=== PATIENT | male | born 1930 | race Caucasian/White ===

== ENCOUNTER 2018-11-21 17:08 | Emergency (ER) | payer MEDICARE, OTHER ==
[~2018-11-21] VITALS: Ht 180.3 cm; Wt 90.7 kg
--- OUTSIDE RECORDS SUMMARY | 2018-11-21 17:13 | XMS REPORT | Continuity of Care Document ---
Author Organization Unknown Address Unknown Allergies There is no data. Medications There is no data. Problems There is no data. Procedures There is no data. Results Test Result Range LIPID PANEL - 08/30/18 08:32 CHOLESTEROL, TOTAL 124 mg/dL <200 HDL CHOLESTEROL 48 mg/dL >40 TRIGLYCERIDES 141 mg/dL <150 LDL-CHOLESTEROL 54 mg/dL (calc) NRG CHOL/HDLC RATIO 2.6 (calc) <5.0 NON HDL CHOLESTEROL 76 mg/dL (calc) <130 CMP - 08/30/18 08:32 GLUCOSE 146 mg/dL 65-99 UREA NITROGEN (BUN) 19 mg/dL 7-25 CREATININE 1.10 mg/dL 0.70-1.11 eGFR NON-AFR. AUSTRALIAN 60 mL/min/1.73m2 > OR=60 eGFR 69 mL/min/1.73m2 > OR=60 BUN/CREATININE RATIO NOT APPLICABLE (calc) 6-22 SODIUM 139 mmol/L 135-146 POTASSIUM 4.4 mmol/L 3.5-5.3 CHLORIDE 102 mmol/L 98-110 CARBON DIOXIDE 29 mmol/L 20-32 CALCIUM 9.9 mg/dL 8.6-10.3 PROTEIN, TOTAL 6.9 g/dL 6.1-8.1 ALBUMIN 4.5 g/dL 3.6-5.1 GLOBULIN 2.4 g/dL (calc) 1.9-3.7 ALBUMIN/GLOBULIN RATIO 1.9 (calc) 1.0-2.5 BILIRUBIN, TOTAL 1.0 mg/dL 0.2-1.2 ALKALINE PHOSPHATASE 53 U/L 40-115 AST 19 U/L 10-35 ALT 13 U/L 9-46 TSH - 08/30/18 08:32 TSH 0.28 mIU/L 0.40-4.50 A1C - 08/30/18 08:32 HEMOGLOBIN A1c 5.4 % of total Hgb <5.7 Encounters ACCT No. Visit Date/Time Discharge Status Pt. Type Provider Facility Loc./Unit Complaint [id number] 11/08/2018 11:40:00 11/08/2018 23:59:59 [facility] Outpatient REESE BOOKER [facility] [id number] 08/30/2018 08:15:00 Document Registration
--- NOTE | 2018-11-21 17:47 | NUR ---
pt here with " number 1 daughter" she is staying in w/r. pt alert gcs 15. pt seen at urgent care [place]. referred here w/o any tx. pt could not ua there.pt says i have a " bladder infection". relates even after taking home dose lasix pt has not urinated since noon today. pt points to bladder area for abd pain rating 10. pt relates no more dyspnea then usua;. no acute sighns of dyspnea noted. lungs cta bilaterally. abd tender to palpation bladder area only. done corrina pt at 1752.
--- NOTE | 2018-11-21 18:19 | NUR ---
pt cant ua yet
--- NOTE | 2018-11-21 18:19 | NUR ---
labs to lab byme
[2018-11-21 18:35] LABS: BASOPHILS % (AUTO) 0 % (0-10); EOSINOPHILS # (AUTO) 0.2 10^3/uL (0.0-0.3); EOSINOPHILS % (AUTO) 1 % (0-10); HEMATOCRIT 41 % (40-54); HEMOGLOBIN 14.2 G/DL (13.3-17.7); LYMPHOCYTES # (AUTO) 1.5 X 10^3 (1.0-4.0); LYMPHOCYTES % (AUTO) 10 % (12-44); MEAN CORPUSCULAR HEMOGLOBIN 31 PG (25-34); MEAN CORPUSCULAR HGB CONC 34 G/DL (32-36); MEAN CORPUSCULAR VOLUME 89 FL (80-99); MEAN PLATELET VOLUME 11.6 FL (7.4-10.4); MONOCYTES # (AUTO) 1.4 X 10^3 (0.0-1.0); MONOCYTES % (AUTO) 10 % (0-12); NEUTROPHILS # (AUTO) 11.5 X 10^3 (1.8-7.8); NEUTROPHILS % (AUTO) 79 % (42-75); PLATELET COUNT 188 10^3/uL (130-400); RED CELL DISTRIBUTION WIDTH 14.6 % (10.0-14.5); WHITE BLOOD COUNT 14.6 10^3/uL (4.3-11.0)
--- NOTE | 2018-11-21 18:44 | ED GU-Female ---
General Chief Complaint: - Urinary Stated Complaint: UTI SYMPTOMS Nursing Triage Note: Pt sent from Urgent Care in [facility] for UTI symptoms. Pt taking Lasix and has not urinated since 1200 and only a scant amount at that time. Nursing Sepsis Screen: No Definite Risk Source: patient Exam Limitations: no limitations History of Present Illness Date Seen by Provider: Nov 21, 2018 Time Seen by Provider: 18:08 Initial Comments This 88-year-old gentleman presents to the emergency room as a referral from the urgent care in [place] for urinary symptoms. He has had decreased urinary output since Thursday. He now has significant pelvic pain related to this. He has been taking an ztum-cnb-lgbnxpl prostate medication for several years but has not been prescribed any prostate medications. He does have a prior history of urinary tract infection. He feels the urge to urinate but cannot. Allergies and Home Medications Allergies Coded Allergies: No Known Drug Allergies (Unverified , 11/21/18) Home Medications Tamsulosin HCl 0.4 Mg Cap, 0.4 MG PO DAILY Prescribed by: SAVITA WOOTEN on 11/21/181945 Patient Home Medication List Home Medication List Reviewed: Yes Review of Systems Review of Systems Constitutional: no symptoms reported EENTM: no symptoms reported Respiratory: no symptoms reported Cardiovascular: no symptoms reported Gastrointestinal: no symptoms reported Genitourinary: see HPI Musculoskeletal: no symptoms reported Skin: no symptoms reported Psychiatric/Neurological: No Symptoms Reported Endocrine: No Symptoms Reported Hematologic/Lymphatic: No Symptoms Reported Past Ghkzuqy-Kjddex-Aoeqtx Hx Past Med/Social Hx: Reviewed and Corrections made Patient Social History Alcohol Use: Denies Use Recreational Drug Use: No Smoking Status: Former Smoker 2nd Hand Smoke Exposure: No Recent Foreign Travel: No Contact w/Someone Who Travel: No Recent Infectious Disease Expo: No Recent Hopitalizations: No Physical Abuse: No Sexual Abuse: No Seasonal Allergies Seasonal Allergies: Yes Past Medical History Surgeries: Yes (By-pass sx.) Angioplasty, Cardiac, Tonsillectomy Respiratory: No Cardiac: Yes Coronary Artery Disease, Heart Attack, High Cholesterol, Hypertension, Irregular Heartbeat Neurological: No Genitourinary: Yes Prostate Problems Gastrointestinal: No Musculoskeletal: Yes Arthritis Diabetes, Non-Insulin dep HEENT: No Loss of Vision: Denies Hearing Impairment: Hard of Hearing Cancer: No Psychosocial: No Integumentary: No Blood Disorders: No Physical Exam Vital Signs Vital Signs - First Documented 11/21/18 17:12 Temp 97.8 Pulse 89 Resp 14 B/P (MAP) 139/79 (99) Pulse Ox 97 O2 Delivery Room Air Capillary Refill : Less Than 3 Seconds Height, Weight, BMI Height: 5'11.00" Weight: 200lbs. oz. 90.691571by; BMI Method:Stated General Appearance: WD/WN, no apparent distress HEENT: PERRL/EOMI, normal ENT inspection Neck: normal inspection Cardiovascular: regular rate, rhythm, no edema, no murmur Respiratory: lungs clear, normal breath sounds, no respiratory distress Gastrointestinal: normal bowel sounds, soft, tenderness (suprapubic), other (bladder distended and palpable just under the umbilicus) Extremities: normal inspection, no pedal edema Neurologic/Psychiatric: combat control II-XII nml as tested, no motor/sensory deficits, alert, normal mood/affect, oriented x 3 Skin: normal color, warm/dry Progress/Results/Core Measures Suspected Sepsis Recent Fever Within 48 Hours: No Infection Criteria Present: Suspected New Infection New/Unexplained Altered Menta: No Sepsis Screen: No Definite Risk SIRS Temperature:97.8 Pulse: 89 Respiratory Rate: 14 Laboratory Tests 11/21/18 18:28: White Blood Count 14.6H Blood Pressure 139 /79 Mean: 99 Laboratory Tests 11/21/18 18:28: Creatinine 1.04, Platelet Count 188, Total Bilirubin 1.1H Results/Orders Lab Results Laboratory Tests Test 11/21/18 18:28 11/21/18 18:58 Range/Units White Blood Count 14.6 H 4.3-11.0 10^3/uL Red Blood Count 4.66 4.35-5.85 10^6/uL Hemoglobin 14.2 13.3-17.7 G/DL Hematocrit 41 40-54 % Mean Corpuscular Volume 89 80-99 FL Mean Corpuscular Hemoglobin 31 25-34 PG Mean Corpuscular Hemoglobin Concent 34 32-36 G/DL Red Cell Distribution Width 14.6 H 10.0-14.5 % Platelet Count 188 130-400 10^3/uL Mean Platelet Volume 11.6 H 7.4-10.4 FL Neutrophils (%) (Auto) 79 H 42-75 % Lymphocytes (%) (Auto) 10 L 12-44 % Monocytes (%) (Auto) 10 0-12 % Eosinophils (%) (Auto) 1 0-10 % Basophils (%) (Auto) 0 0-10 % Neutrophils # (Auto) 11.5 H 1.8-7.8 X 10^3 Lymphocytes # (Auto) 1.5 1.0-4.0 X 10^3 Monocytes # (Auto) 1.4 H 0.0-1.0 X 10^3 Eosinophils # (Auto) 0.2 0.0-0.3 10^3/uL Basophils # (Auto) 0.0 0.0-0.1 10^3/uL Neutrophils % (Manual) 76 % Lymphocytes % (Manual) 15 % Monocytes % (Manual) 5 % Band Neutrophils 1 % Reactive Lymphocytes 3 % Blood Morphology Comment NORMAL Sodium Level 136 135-145 MMOL/L Potassium Level 4.1 3.6-5.0 MMOL/L Chloride Level 98 98-107 MMOL/L Carbon Dioxide Level 23 21-32 MMOL/L Anion Gap 15 H 5-14 MMOL/L Blood Urea Nitrogen 22 H 7-18 MG/DL Creatinine 1.04 0.60-1.30 MG/DL Estimat Glomerular Filtration Rate > 60 BUN/Creatinine Ratio 21 Glucose Level 108 H 70-105 MG/DL Calcium Level 9.8 8.5-10.1 MG/DL Corrected Calcium 9.6 8.5-10.1 MG/DL Magnesium Level 2.0 1.8-2.4 MG/DL Total Bilirubin 1.1 H 0.1-1.0 MG/DL Aspartate Amino Transf (AST/SGOT) 24 5-34 U/L Alanine Aminotransferase (ALT/SGPT) 18 0-55 U/L Alkaline Phosphatase 54 40-136 U/L Total Protein 6.8 6.4-8.2 GM/DL Albumin 4.2 3.2-4.5 GM/DL Urine Color YELLOW Urine Clarity CLEAR Urine pH 7 5-9 Urine Specific Jackson 1.005 L 1.016-1.022 Urine Protein NEGATIVE NEGATIVE Urine Glucose (UA) NEGATIVE NEGATIVE Urine Ketones NEGATIVE NEGATIVE Urine Nitrite NEGATIVE NEGATIVE Urine Bilirubin NEGATIVE NEGATIVE Urine Urobilinogen NORMAL NORMAL MG/DL Urine Leukocyte Esterase NEGATIVE NEGATIVE Urine RBC (Auto) 5+ H NEGATIVE Urine RBC >100 H /HPF Urine WBC NONE /HPF Urine Squamous Epithelial Cells RARE /HPF Urine Crystals NONE /LPF Urine Bacteria TRACE /HPF Urine Casts NONE /LPF Urine Mucus NEGATIVE /LPF Urine Culture Indicated NO My Orders Orders - SAVITA GUTIÉRREZ MD Cbc With Automated Diff (11/21/18 18:09) Comprehensive Metabolic Panel (11/21/18 18:09) Magnesium (11/21/18 18:09) Ua Culture If Indicated (11/21/18 18:09) Ed Iv/Invasive Line Start (11/21/18 18:09) Michel Cath (11/21/18 18:32) Manual Differential (11/21/18 18:28) Tamsulosin Capsule (Flomax Capsule) (11/21/18 19:45) Medications Given in ED Current Medications Medications Dose Ordered Sig/Desiree Route Start Time Stop Time Status Last Admin Dose Admin Tamsulosin HCl 0.4 mg ONCE ONCE PO 11/21/18 19:45 11/21/18 19:46 DC 11/21/18 19:55 0.4 MG Vital Signs/I&O 11/21/18 17:12 Temp 97.8 Pulse 89 Resp 14 B/P (MAP) 139/79 (99) Pulse Ox 97 O2 Delivery Room Air Capillary Refill : Less Than 3 Seconds Blood Pressure Mean: 99 Progress Note #1: Time: 18:42 Progress Note Patient seen and examined. Labs pending. Bladder appears to be distended and palpable just under the umbilicus. We will place a catheter and check urinalysis as well. Progress Note #2: Time: 20:21 Progress Note Michel catheter was placed yielding 800 mL of urine. He did have some terminal hematuria with a clot. This was irrigated by nursing staff to clear the clots. Michel catheter was left in. A dose of Flomax was administered and a prescription was provided. Patient was instructed to follow-up as soon as possible with Dr. Booker or Dr. Woo. Departure Impression Primary Impression: Urinary retention Disposition: 01 HOME, SELF-CARE Condition: Improved Departure-Patient Inst. Referrals: REESE BOOKER MD (PCP/Family) Primary Care Physician FERNANDO WOO MD Patient Instructions: How to Care for Your Michel Catheter, Male, Urinary Obstruction Add. Discharge Instructions: Complete the urinary catheter in place until you follow up with either Dr. Booker or Dr. Woo. Follow-up with either of these physicians or both of them as soon as possible. The meantime start Flomax as prescribed. Drink plenty of clear liquids. Return to the emergency room if you have any problems or concerns. All discharge instructions reviewed with patient and/or family. Voiced understanding. Scripts Tamsulosin HCl (Flomax) 0.4 Mg Cap 0.4 MG PO DAILY, #30 CAP Prov: SAVITA GUTIÉRREZ MD 11/21/18 Copy Copies To 1: REESE BOOKER MD Copies To 2: FERNANDO WOO MD, JOSHUA T MD Nov 21, 2018 18:44
[2018-11-21 18:56] LABS: BAND NEUTROPHILS 1 %; LYMPHOCYTES % (MANUAL) 15 %; MONOCYTES % (MANUAL) 5 %; NEUTROPHILS % (MANUAL) 76 %; RBC MORPH NORMAL; REACTIVE LYMPHOCYTES 3 %
[2018-11-21 18:57] LABS: ALANINE AMINOTRANSFERASE 18 U/L (0-55); ALBUMIN 4.2 GM/DL (3.2-4.5); ALKALINE PHOSPHATASE 54 U/L (40-136); BILIRUBIN,TOTAL 1.1 MG/DL (0.1-1.0); BUN/CREATININE RATIO 21; CALCIUM 9.8 MG/DL (8.5-10.1); CARBON DIOXIDE 23 MMOL/L (21-32); CHLORIDE 98 MMOL/L (98-107); CREATININE SERUM 1.04 MG/DL (0.60-1.30); GFR ESTIMATED > 60; GLUCOSE 108 MG/DL (70-105); POTASSIUM 4.1 MMOL/L (3.6-5.0); SODIUM 136 MMOL/L (135-145); TOTAL PROTEIN 6.8 GM/DL (6.4-8.2)
--- NOTE | 2018-11-21 18:58 | NUR ---
lopez by me w/o problems. 800 residual. pt expressed relief already. yellow the turned to hematuria. knows. ua to lab by me
[2018-11-21 19:06] LABS: BILIRUBIN,URINE NEGATIVE (NEGATIVE); CLARITY,URINE CLEAR; COLOR,URINE YELLOW; GLUCOSE, URINE (UA) NEGATIVE (NEGATIVE); KETONES,URINE NEGATIVE (NEGATIVE); LEUKOCYTE ESTERASE ,URINE NEGATIVE (NEGATIVE); NITRITE,URINE NEGATIVE (NEGATIVE); PH,URINE 7 (5-9); PROTEIN,URINE NEGATIVE (NEGATIVE); UROBILINOGEN,URINE NORMAL (NORMAL)
[2018-11-21 19:14] LABS: BACTERIA,URINE TRACE /HPF; RBC,URINE >100 /HPF; SQUAMOUS EPITHELIAL CELL,UR RARE /HPF
[2018-11-21] MEDS ORDERED: TAMSULOSIN 0.4 MG (FLOMAX) CAP PO ONE (19:45)
[2018-11-21] MEDS ORDERED: TAMS0.4C98 PO (19:46)
--- NOTE | 2018-11-21 19:50 | NUR ---
bp machine is 118/67 ausc hr 80 slightly irreg ausc resp 16 normal recheck temp 97.5 p ox r/a is 96. pt remains alert gcs 15. daughter in room now. pt denies pain and dyspnea and no acute sighns of dyspnea noted. lopez has 850 in it with blood and 1 large clot. v/o dr irrigate lopez. i irrigated lopez with approx 200 ml sterile h20. blood lightended up and no clots noted at 2006.i placed leg bag on pt. dr also wanted reg lopez bag for them to take home. i gave a new lopez bag to pt and daughter. i also explained to them about lopez care and leg bag and regular lopez bag care. i also gaave them info from the lopez bag set up.
[2018-11-21 20:37] VITALS: BP 118/67
--- NOTE | 2018-11-21 20:37 | NUR ---
d/c instrcutions to pt and daughter . told to read all papers. scriptts faxed. pt left ambulatory with daughter. pt knows f/u. i went over the handtyped by information on the chart. iv d/cd by me prior to d/c. lopez bag given for home use.
== END 2018-11-21 20:37 | disposition home or self-care (01) ==
LOC: EDUNIT# 17:08 → ER 17:09
DX: R33.9 Retention of urine, unspecified (principal); I10 Essential (primary) hypertension; E78.00 Pure hypercholesterolemia, unspecified; I25.2 Old myocardial infarction; I25.10 Atherosclerotic heart disease of native coronary artery without angina pectoris; E11.9 Type 2 diabetes mellitus without complications; Z87.440 Personal history of urinary (tract) infections; Z87.891 Personal history of nicotine dependence; Z95.1 Presence of aortocoronary bypass graft; Z90.89 Acquired absence of other organs; Z95.5 Presence of coronary angioplasty implant and graft
CPT/HCPCS: 36415; 51702; 80053; 81000; 83735; 85007; 85027

== ENCOUNTER → 2019-05-23 | Outpatient (CLI) | payer MEDICARE, OTHER ==
[~2019-05-23] MED LIST: TAMS0.4C98 PO
--- NOTE | 2019-05-23 14:00 | Diagnostic Imaging Report ---
PROCEDURE: US Scrotum. TECHNIQUE: Multiple real-time grayscale images were obtained over the scrotum in various projections bilaterally. INDICATION: Left inguinal hernia. FINDINGS: The right testicle measures 4.9 x 2.7 x 3.2 cm and the left testicle measures 3.9 x 2.9 x 3.5 cm. Both testes show fairly homogeneous echotexture. No discrete testicular mass is identified. There is blood flow to both testes. There is a tiny cyst along the periphery of the right testicle measuring 6 mm x 4 mm. This may represent a very small testicular cyst versus a tunica cyst. Small hydroceles are noted bilaterally. Epididymides are poorly visualized. There is a large cystic lesion superior to the left testicle measuring 6.6 x 4.8 x 6.3 cm. IMPRESSION: 1. No testicular mass or vascular compromise is seen apart from subcentimeter left testicular versus tunica cyst. 2. Large extratesticular cystic mass cephalad to the left testicle, as described. Dictated by: Dictated on workstation # [id number]
== END ==
LOC: RAD 12:00
PROVIDERS: ATTEND Urology
DX: K40.90 Unilateral inguinal hernia, without obstruction or gangrene, not specified as recurrent (principal); N44.2 Benign cyst of testis
CPT/HCPCS: 76870

== ENCOUNTER → 2019-06-21 | Outpatient (CLI) | payer MEDICARE, OTHER ==
[~2019-06-21] MED LIST changes: -TAMS0.4C98 PO; +TMSL.4C PO
--- NOTE | 2019-06-21 16:23 | Diagnostic Imaging Report ---
HISTORY: Bilateral shoulder pain. COMPARISON: 11/08/2018 FINDINGS: Four views of the right and left shoulders. There is diffuse osteopenia. Right shoulder: There are mlkbttdm-ok-nqkawa degenerative changes in the glenohumeral joint and moderate degenerative changes in the acromioclavicular joint. Small calcification is seen lateral to the acromion, may represent a small enthesophyte. No acute fracture is seen. Left shoulder: There are severe degenerative changes in the left shoulder with complete joint space loss, subchondral sclerosis, osteophytes, and articular surface remodeling. There is an ossific joint body superior to the glenoid measuring approximately 1.5 cm. Mild degenerative changes are seen in the acromioclavicular joint. There is loss of the acromiohumeral space consistent with rotator cuff injury. IMPRESSION: 1. 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 2. Chronic left rotator cuff injury. Calcified left shoulder joint body. Dictated by: Dictated on workstation # [id number]
== END ==
LOC: RAD FS 12:51
PROVIDERS: ATTEND Nurse Practitioner
DX: M19.011 Primary osteoarthritis, right shoulder (principal); M19.012 Primary osteoarthritis, left shoulder; S46.002A Unspecified injury of muscle(s) and tendon(s) of the rotator cuff of left shoulder, initial encounter; M25.812 Other specified joint disorders, left shoulder